=== PATIENT | female | born 1980 | race Two or more races ===

== ENCOUNTER 2025-07-30 16:47 | Emergency (ER) | payer MEDICAID, SELFPAY ==
[2025-07-30 17:09] VITALS: BP 124/78; PULSE 60; RESP 18; TEMP 36.8; O2SAT 99; BMI 34.2
--- NOTE | 2025-07-30 17:23 | XR_ITS ---
EXAMINATION: PA lateral chest 2 views TECHNIQUE: Upright PA lateral chest 2 views Date and time: July 30, 2025, 1741 hours INDICATIONS: Chest pain today. FINDINGS: Normal heart size Mild accentuation bronchovascular markings. No lobar pneumonia or pulmonary edema IMPRESSION: Bronchitis pattern
--- NOTE | 2025-07-30 17:23 | EKG_ITS ---
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
--- NOTE | 2025-07-30 17:23 | XR_ITS ---
Examination: CT brain head without contrast. 2-D sagittal coronal reconstructions Date and time of exam: July 30, 2025, 1807 hours INDICATIONS: Headache vomiting beginning 2 weeks ago CTDI: vol (mGy): 52.3 DLP: (mGycm): 1012 Technique: Multiple CT axial sections of the brain have been obtained, 5 mm slice thickness. Contrast has not been administered. 2-D sagittal, coronal reconstructions have been obtained Low dose protocols were performed. One or more of the following dose reduction techniques were used; automated exposure control, adjustment of the mA and/or KV according to patient size, use of iterative reconstruction technique. Findings: No significant ventricular enlargement. Intra-axial or extra-axial hemorrhage density is not seen. No mass effect or midline shift Basal cisterns are not remarkable. Fourth ventricle is midline. Cranial vault intact. Impression: Negative for acute hemorrhage, mass effect or midline shift Chronic sinusitis including acute sphenoid sinusitis
--- NOTE | 2025-07-30 17:24 | PD.EDRME ---
Rapid Medical Screening Exam RME Arrival date/time: 07/30/25 16:47 45-year-old female presents to the emergency room today for complaints of headache and dizziness Chief Complaint: Dizziness Vital signs: Vital Signs Temperature 98.2 F 07/30/25 17:09 Pulse Rate 60 07/30/25 17:09 Respiratory Rate 18 07/30/25 17:09 Blood Pressure 124/78 07/30/25 17:09 Pulse Oximetry (%) 99 07/30/25 17:09 Oxygen Delivery Method Room Air 07/30/25 17:09 Vital signs reviewed by provider: Yes Exam: On exam patient well-appearing patient does not appear ill or toxic no acute distress Clinical Impression: Lab work and imaging ordered
[2025-07-30 17:59] LABS: Basophils # (Auto) 0.0 Thou/mm3 (0.0-0.2); Basophils % (Auto) 1 % (0-2.5); Eosinophils # (Auto) 0.3 Thou/mm3 (0.0-0.5); Eosinophils % (Auto) 4 % (0-10); Hematocrit 37.5 % (36.0-46.0); Hemoglobin 12.9 g/dL (12.0-16.0); Immature Granulocytes Auto 0.01 Thou/mm3 (0.00-0.00); Lymphocytes # (Auto) 1.6 Thou/mm3 (1.0-4.8); Lymphocytes % (Auto) 25 % (10-50); Mean Corpuscular HGB Conc 34.4 g/dl (31.0-37.0); Mean Corpuscular Hemoglobin 30.6 pg (25.0-35.0); Mean Corpuscular Volume 89 fL (80-100); Monocytes # (Auto) 0.5 Thou/mm3 (0.0-0.8); Monocytes % (Auto) 8 % (0-12); Neutrophils # (Auto) 4.1 Thou/mm3 (1.8-7.7); Neutrophils % (Auto) 63 % (37-80); Nucleated Red Blood Cell # 0.00 Thou/mm3 (0.00-0.00); Nucleated Red Blood Cell % 0 /100 WBC (0); Platelet Count 258 Thou/mm3 (140-440); RDW Standard Deviation 39.2 fL (36.4-46.3); Red Blood Count 4.21 Miln/mm3 (4.00-5.20); White Blood Count 6.5 Thou/mm3 (3.6-11.0)
[2025-07-30 18:20] LABS: Alanine Aminotransferase 38 U/L (10-49); Albumin, Serum 4.6 gm/dL (3.5-5.0); Albumin/Globulin Ratio 1.3 (1.2-2.2); Alkaline Phosphatase 68 U/L (46-116); Anion Gap 9 (7-16); Aspartate Amino Transferase < 8 U/L (0-34); BUN/Creatinine Ratio 10 Ratio (12-20); Bilirubin,Total 0.4 mg/dL (0.3-1.2); Blood Urea Nitrogen 7 mg/dL (9-23); Calcium 9.6 mg/dL (8.3-10.6); Calcium (Corrected) 9.6 mg/dL (8.5-10.1); Carbon Dioxide 27.9 mMol/L (20.0-31.0); Chloride 101 mMol/L (98-107); Creatinine (Component) 0.7 mg/dL (0.6-1.3); Estimated Creatinine Clearance 96.6 mL/min (>60); Globulin 3.5 gm/dL (2.3-3.5); Glucose 121 mg/dL (74-106); Lipase 31 U/L (12-53); Osmolality,Calculated 274 (275-295); Potassium 3.7 mMol/L (3.4-5.1); Sodium 138 mMol/L (136-145); Total Protein 8.1 gm/dL (5.7-8.2); Troponin I < 0.002 ng/mL (0.0-0.045); eGFR > 60 See Note
[2025-07-30 18:23] LABS: Collection Type, Urine Clean Catch
[2025-07-30 18:45] LABS: HCG Qualitative,Urine Negative
[2025-07-30 18:58] LABS: Bilirubin,Urine Negative (Negative); Blood,Urine Negative (Negative); Clarity,Urine Clear (Clear/Hazy); Color,Urine Yellow (Lt Yel-Yel); Culture Indicated,Urine Not Indicated; Glucose, Urine Negative (Negative); Ketones,Urine Negative (Negative); Leukocyte Esterase,Urine Negative (Negative); Nitrite,Urine Negative (Negative); PH,Urine 6.5 (5.0-7.0); Protein,Urine 1+ (Neg - Trace); RBC,Urine 1 /hpf (0-3); Specific Gravity,Urine 1.028 (1.001-1.035); Squamous Epithelial Cell,Urine 6 /hpf (0-5); Urobilinogen,Urine Negative mg/dL (0.0-1.0); WBC,Urine 1 /hpf (0-5)
[2025-07-30] MEDS: ONDANSETRON ODT 4 MG TABRAP PO (19:56)
[2025-07-30 19:57] VITALS: BP 121/70; PULSE 70; RESP 18; TEMP 36.8; O2SAT 97
[2025-07-30 22:24] VITALS: BP 122/79; PULSE 76; RESP 18; TEMP 36.6; O2SAT 98
--- NOTE | 2025-07-30 22:43 | PD.EDADULT ---
ED General RME/HPI General Chief complaint: Dizziness Stated complaint: DIZZY, VOMITING, HEADACHE, BODYACHE Arrival date/time: 07/30/25 16:47 CC: Dizziness HPI ongoing for a day and a half, patient states the room spinning she is not, patient states no dizziness when she is sitting down when she stands up and moves around she gets dizzy denies any fall intermittent nausea no nausea since given ondansetron in the waiting room. Denies fever chills blurred vision seeing spots headache diarrhea constipation or chest pain no other complaints no prior history of similar events. RME / HPI RME / HPI narrative: 07/30/25 16:47 45-year-old female presents to the emergency room today for complaints of headache and dizziness Exam: On exam patient well-appearing patient does not appear ill or toxic no acute distress Impression: Lab work and imaging ordered Related Data Home Medications ?Medication ?Instructions ?Recorded ?Confirmed ferrous sulfate 325 mg (65 mg 325 mg PO QDAY 10/29/21 02/11/22 iron) tablet (iron) prenat.vits,willa,[id number]-[id number]-szmfl 1 tab PO QDAY 10/29/21 02/11/22 Previous Rx's ?Medication ?Instructions ?Recorded docusate sodium 100 mg capsule 100 mg PO BID #60 caps 02/11/22 (Colace) ibuprofen 800 mg tablet 800 mg PO Q6H PRN pain #120 tabs 02/11/22 lanolin 50 % topical ointment 1 applic topical TID PRN skin 02/11/22 irritation #15 tubes meclizine 25 mg tablet 25 mg PO BID PRN dizziness #14 tabs 07/30/25 Allergies Allergy/AdvReac Type Severity Reaction Status Date / Time No Known Allergies Allergy Verified 07/30/25 16:51 Review of Systems Review of Systems Narrative Review of Systems: GEN: No fever, no chills, no weight loss EYES: No discharge, no visual changes, no pain HEENT: No ear pain, no congestion, no sore throat PULM: No shortness of breath, no cough, no congestion CV: No chest pain, no dyspnea on exertion, no palpitations GI: No nausea, no vomiting, no diarrhea, no pain, no constipation : No frequency, no urgency, no dysuria MUSC/SKEL: No joint pain, no back pain SKIN: No rash PSYCH: No hallucinations, no depression HEME/LYMPH: No easy bleeding or bruising tendencies NEURO: No weakness, no headache, + dizziness Past Medical History Past Medical History CARDIAC: Negative Cardiac Disorders or Congestive Heart Failure RESPIRATORY: Negative Chronic Obstructive Pulmonary Disease (COPD) or Asthma GASTROINTESTINAL: Negative Hepatitis or Colorectal Cancer GENITOURINARY: Negative Genitourinary Disorders, Renal Disease or Prostate Cancer REPRODUCTIVE: Positive Previous Pregnancies; Negative Breast Cancer, Endometriosis, Genital Herpes, Gonorrhea, Pelvic Inflammatory Disease, Syphilis, Testicular Cancer or Uterine Prolapse MUSCULOSKELETAL: Negative Musculoskeletal Disorders or Bone Cancer ENDOCRINE: Negative Diabetes Mellitus Type 1 or Diabetes Mellitus Type 2 HEMATOLOGIC: Negative Blood Disorders, Anemia, Leukemia, Hemophilia, Thalassemia, Sickle Cell Disease or Clotting Problems PSYCHO/SOCIAL: Negative Depression, Anxiety or Depression OTHER HISTORY: Negative Hospitalization, Autoimmune Disease, Down Syndrome, Developmental Delay, Shingles, Falls, Blood Transfusions, Blood Transfusion Reaction, Anesthesia Reactions, Organ Transplant, Chemotherapy, Radiation Therapy, Hyperbaric Therapy, MRSA, VRSA, Vancomycin-Resistant Enterococci, Human Immunodeficiency Virus (HIV), Chicken Pox, Measles, Mumps, Rubella (Malagasy Measles), Pertussis, Clostridium Difficile, Cancer, Breast Cancer, Cervical Cancer, Colorectal Cancer, Lung Cancer, Ovarian Cancer, Prostate Cancer or Testicular Cancer Family History FAMILY HISTORY: Negative Family Psychiatric Problems, Family Respiratory Disorders, Family Cardiac Disorders, Family Gastrointestinal Problems, Family Cancer, Family Surgery or Family Anesthesia Reaction Surgical History SURGICAL: Negative Section or Organ Transplant Social History SMOKING STATUS: Never smoker SECOND HAND EXPOSURE: No ED Exam Narrative Physical exam: [General: Obese not in any acute distress Head normocephalic HEENT: Eyes pupils are PERRLA EOMs are intact nystagmus. Mouth pink moist membranes uvula is midline swallow symmetrical all the subsystems of HEENT are within acceptable limits Neck is supple nontender Chest equal chest rise nontender to palpation Respiratory: Clear to auscultation no wheezes crackles or rubs CV: Rate rhythm is regular no murmurs rubs or clicks Abdomen is distended secondary to body habitus soft nontender no masses positive bowel sounds all 4 quadrants Back: No CVA tenderness no spinous process tenderness from cervical spine thoracic and lumbar spine Skin: Intact no petechiae rash induration ulceration or crepitus Extremities: Moving all extremity against resistance cap refill less than 2 seconds neurosensory intact Neuro: Awake alert oriented x3 Glascow coma 15 no focal deficits] Course Quality Measures none Orders Category Date Time Status EKG (ED ONLY) *Do not use* NOW Care 07/30/25 17:[address] head/brain wo con Stat Exams 07/30/25 17:23 Completed EKG (ED Only) Stat Exams 07/30/25 17:23 Draft XR chest 2V Stat Exams 07/30/25 17:23 Completed CBC Stat Lab 07/30/25 17:43 Completed Comprehensive Metabolic Panel Stat Lab 07/30/25 17:43 Completed HCG Qualitative,Urine Stat Lab 07/30/25 18:00 Completed Lipase Stat Lab 07/30/25 17:43 Completed Troponin I Stat Lab 07/30/25 17:43 Completed UA, C/S IF [Urinalysis, C/S if Indicated] Stat Lab 07/30/25 18:00 Completed HYDROcodone*/APAP 5/325 [[place] 5/325] Med 07/30/25 17:24 Discontinued 1 tab PO X1 ONE Meclizine HCl [Antivert] Med 07/30/25 22:42 Once 50 mg PO X1 ONE Ondansetron Odt [Zofran Odt] Med 07/30/25 17:24 Discontinued 4 mg PO X1 ONE Vital Signs Vital signs: Vital Signs Temperature 98.2 F 07/30/25 17:09 Pulse Rate 60 07/30/25 17:09 Respiratory Rate 18 07/30/25 17:09 Blood Pressure 124/78 07/30/25 17:09 Pulse Oximetry (%) 99 07/30/25 17:09 Oxygen Delivery Method Room Air 07/30/25 17:09 Discharge Plan Plan Patient Disposition: HOME (Self Care) Patient condition on transfer: Stable Prescriptions/Referrals Prescriptions/Med Rec: New meclizine 25 mg tablet 25 mg PO BID PRN (Reason: dizziness) Qty: 14 0RF No Action ibuprofen 800 mg tablet 800 mg PO Q6H MDD 4 PRN (Reason: pain) Qty: 120 0RF docusate sodium [Colace] 100 mg capsule 100 mg PO BID Qty: 60 0RF lanolin 50 % ointment 1 applic topical TID PRN (Reason: skin irritation) Qty: 15 0RF ferrous sulfate [iron] 325 mg (65 mg iron) Tablet 325 mg PO QDAY prenat.vits,willa,hra-zkvo-qwncl Tablet 1 tab PO QDAY Referrals: Farhad Paulino MD [Primary Care Provider, Family Practice] - In 1 week Problem List Clinical Impression: Benign paroxysmal positional vertigo Patient/Caregiver Discharge Instructions Education Materials: Vertigo Medicine Tx, ED BPV Vertigo Additional Instructions: Take the medication as prescribed. Follow-up with your primary care doctor. If there is worsening of symptoms in spite of the medication return to the emergency room meetly for further evaluation. Print Language: Macedonian Stand Alone Forms: Lauren Award Info., Patient Portal Info Letter, Work/School Release PA/SURVEILLANCE SYSTEMS ANALYST Supervising Physician PA/SURVEILLANCE SYSTEMS ANALYST Supervising Physician: Tommie Aguila ENP [facility] Clinical Information Provided by: patient Medical Records reviewed [facility] Meds/Rx considered, not ordered None Labs/Rad/Tests considered, not ordered None Chronic Illness/Social Conditions which may negatively complicate care or outcome(s)-explain: None or not applicable Explain: Obesity EKG Interpretation EKG #1: EKG Interpretation: EKG performed at 1735 shows a ventricular rate of 63 [place] interval 151 QRS of 8 6 QTc of 403 this is normal sinus rhythm. Labs Labs: interpreted by ga Lab(s) Interpretation(s): CBC shows no acute leukocytosis anemia thrombocytopenia CMP shows no significant electrolyte imbalances other than a glucose of 121 no renal impairment transaminitis or T. bili elevation Troponin is negative Urine is negative for UTI is negative Imaging Imaging interpretation: interpreted by ga Imaging Interpretation(s): Head CT is negative for any acute finding Chest x-ray is negative for any acute finding. Medication Administration(s) Medication Administration History Meclizine HCl (Meclizine Hcl 25 Mg Tablet) 50 mg PO X1 ONE Stop: 07/30/25 22:43 Discontinued Medications Hydrocodone Bitart/Acetaminophen (Hydrocodone/Apap 5/325 Tablet) 1 tab PO X1 ONE Stop: 07/30/25 17:25 Last Admin: 07/30/25 19:53 Dose: Not Given Documented By: CINTHYA Non-Admin Reason: Patient Refused Ondansetron HCl (Ondansetron Odt 4 Mg Tabrap) 4 mg PO X1 ONE; Protocol Stop: 07/30/25 17:25 Last Admin: 07/30/25 19:56 Dose: 4 mg Documented By: CINTHYA
[2025-07-30] MEDS: MECLIZINE HCL 25 MG TABLET 50 MG PO (22:52)
== END 2025-07-30 22:59 | disposition home or self-care (01) ==
PROVIDERS: Nurse Practitioner Primary Care; Emergency Provider Emergency Medicine; PCP Family Medicine
DX: H81.10 Benign paroxysmal vertigo, unspecified ear (principal)
CPT/HCPCS: 36415; 70450; 71046; 80053; 81001; 81025; 83690; 84484; 85025; 93005; 99283; Q0162; A9270